=== PATIENT | male | born 1935 | race Caucasian/White ===

== ENCOUNTER 2016-10-12 17:23 | Emergency (ER) | payer MEDICARE ==
[~2016-10-12] VITALS: Ht 185.4 cm; Wt 88.0 kg
[2016-10-12 17:27] VITALS: BP 117/59; PULSE 60; RESP 16; TEMP 98.1; O2SAT 94
[2016-10-12] MEDS ORDERED: SIMV40TA PO (17:43)
[2016-10-12] MEDS ORDERED: TAMS0.4C4 PO (17:43)
[2016-10-12] MEDS ORDERED: ASPI81CH CHEW (17:43)
[2016-10-12] MEDS ORDERED: NIAC500T5 PO (17:43)
[2016-10-12] MEDS ORDERED: OMEP20TA PO (17:43)
[2016-10-12] MEDS ORDERED: PLAV75TA29 PO (17:43)
[2016-10-12] MEDS ORDERED: ATEN50TA PO (17:44)
[2016-10-12] MEDS ORDERED: MULT-116 PO (17:44)
--- NOTE | 2016-10-12 18:09 | PD ---
HPI Chief Complaint: Laceration/Skin Injury Time Seen by Provider: 18:09 Travel History International Travel<30 days: No Contact w/Intl Traveler<30days: No Traveled to known affect area: No History of Present Illness HPI 80-year-old male with PMH of HTN, HLD, GERD, CAD S/P stenting (2000) on Plavix, presents to the ED for evaluation of laceration of the right foot. Sustained at approximately noon today while the patient was wading in the river. Patient states that his daughter cleaned the wound with "wound wash and peroxide" before applying a dressing. However, when the patient stood up there was a lot of blood which prompted them to seek treatment at the ED. Patient states that his feet are chronically numb. He denies history of diabetes. Takes no daily medications, NKDA. 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) Social History Alcohol Use: Yes (daily) Tobacco Use: No Substance Use: No Allergies-Medications (Allergen,Severity, Reaction): Coded Allergies: No Known Allergies (Unverified , 10/12/16) Reported Meds & Prescriptions Reported Meds & Active Scripts Active Cipro (Ciprofloxacin HCl) 500 Mg Tab 500 Mg PO BID 3 Days Reported Alfonso Mag Zinc + D3 (Multiple Vitamins W/ Minerals) 1 Tab 1 Tab PO DAILY Atenolol 50 Mg Tab 50 Mg PO DAILY Aspirin 81 Mg Chew 81 Mg CHEW DAILY Plavix (Clopidogrel Bisulfate) 75 Mg Tab 75 Mg PO DAILY Omeprazole 20 Mg Tab 20 Mg PO DAILY Niacin 500 Mg Tab 500 Mg PO DAILY Simvastatin 40 Mg Tab 40 Mg PO HS Tamsulosin (Tamsulosin HCl) 0.4 Mg Cap 0.4 Mg PO HS Review of Systems Except as stated in HPI: all other systems reviewed are Neg Physical Exam Narrative GENERAL: Well-nourished, well-developed hard of hearing elderly white male in no acute distress. SKIN: Focused skin assessment warm/dry. There is a 1.5 cm laceration on the plantar aspect of the right foot just proximal to the MP joint of the great toe. There is a approximate 1 cm laceration slightly distal and medial to this. There is a 1 cm laceration on the medial aspect of the right great toe. There are several smaller, more superficial wounds scattered across the distal third of the plantar aspect of the foot. No visible foreign body or active bleeding. HEAD: Normocephalic. EYES: No scleral icterus. No injection or drainage. NECK: Supple, trachea midline. No JVD or lymphadenopathy. CARDIOVASCULAR: Regular rate and rhythm without murmurs, gallops, or rubs. RESPIRATORY: Breath sounds equal bilaterally. No accessory muscle use. GASTROINTESTINAL: Abdomen soft, non-tender, nondistended. MUSCULOSKELETAL: No cyanosis, or edema. Focused right lower extremity exam: 2+ radial pulse. Patient is able to flex and extend the toes and ankle. Sensation diminished, chronic according to the patient. BACK: Nontender without obvious deformity. No CVA tenderness. Data Data Last Documented VS Vital Signs Date Time Temp Pulse Resp B/P Pulse Ox O2 Delivery O2 Flow Rate FiO2 10/12/16 17:27 98.1 60 16 117/59 94 Orders Foot, Limited (2vws) (10/12/16 18:12) Ice/Cold Pack (10/12/16 18:12) Tetanus/Diphtheria Tox Adult (Tetanus/Di (10/12/16 18:15) Lidocaine 1% Inj (50 Ml) (Xylocaine 1% I (10/12/16 18:15) Foot, Limited (2vws) (10/12/16 19:50) Ciprofloxacin (Cipro) (10/12/16 20:45) Post Op Boot (Shoe) (10/12/16 ) MDM Medical Decision Making Medical Screen Exam Complete: Yes Emergency Medical Condition: Yes Differential Diagnosis Abrasion versus laceration versus foreign body versus other Narrative Course 80-year-old male with PMH of HTN, HLD, GERD, CAD S/P stenting (2000) on Plavix, presents to the ED for evaluation of laceration of the right foot. Sustained at approximately noon today while the patient was wading in the river. Patient states that his daughter cleaned the wound with "wound wash and peroxide" before applying a dressing. However, when the patient stood up there was a lot of blood which prompted them to seek treatment at the ED. Patient states that his feet are chronically numb. He denies history of diabetes. Vitals reviewed. Physical exam reveals a hard of hearing, pleasant white male in no acute distress. Focused RLE exam reveals a 1.5 cm laceration on the plantar aspect of the right foot just proximal to the MP joint of the great toe. There is an approximate 1 cm laceration slightly distal and medial to this. There is a 1 cm laceration on the medial aspect of the right great toe. There are several smaller, more superficial wounds scattered across the distal third of the plantar aspect of the foot. No visible foreign body or active bleeding. 2 + radial pulse. Patient is able to flex and extend the toes and ankle. Sensation diminished, chronic according to the patient. Tetanus immunization was updated. X-rays revealed radiopaque foreign bodies in the foot. The foot was irrigated with 1.5 L normal saline. Second x-ray reveals one remaining foreign body. I explored the more medial and distal wound with a pair of forceps and removed a small piece of seashell. The wound was irrigated a second time. Laceration repair was performed. Please see my procedure note for details. Patient was prescribed Cipro twice a day 3 days. First dose administered in the ED. A dressing and postop shoe was applied. He is instructed to discontinue taking his simvastatin for the next 3 days, keep the wound clean, dry, covered, utilize OTC medications as needed for pain, return to the ED for wound evaluation in 72 hours. The patient and his daughter indicated understanding of the instructions and are agreeable to the care plan. The patient is stable and discharged home. Procedures Procedure Narrative LACERATION LOCATION: Plantar aspect right foot, just proximal to the MP joint of the great toe. LENGTH: 1.5 cm NUMBER OF STITCHES/DAYRON: 1 REPAIR: The area of the laceration was prepped with Betadine and sterilely draped. The laceration was infiltrated with 1 cc of 1% lidocaine. The wound was copiously irrigated and explored without evidence of foreign body, tendon injury or neurovascular injury. The wound was closed using 4-0 Prolene. This was a single layer repair. A sterile dressing and postop shoe was applied. The patient was advised to keep the dressing clean and dry. Patient tolerated the procedure well. Diagnosis Primary Impression: Laceration of right foot with foreign body Qualified Code: S91.321A - Laceration of right foot with foreign body, initial encounter Referrals: Primary Care Physician Patient Instructions: Care For Your Stitches (ED), General Instructions, Puncture Wound (ED) Additional Instructions: Rest, ice, elevate the extremity. Apply ice no longer than 10-15 minutes per hour a few times a day. [id number] medications as needed for pain. Keep the wounds clean, dry and covered. Change the dressing anytime it becomes soiled or wet. Wash hands before and after touching the wound. Cipro 500 mg twice a day as prescribed. DO NOT TAKE SIMVASTATIN WHILE YOU ARE TAKING CIPRO. RETURN TO THE ED IN 72 HOURS FOR WOUND CHECK. Med/Other Pt SpecificInfo: Prescription(s) given Scripts Ciprofloxacin (Cipro)500 Mg [id number] Mg PO BID 3 Days Ref 0 Prov:Sarwat Celeste MD 10/12/16 Disposition: 01 DISCHARGE HOME Condition: Stable Kimberley Quezada Oct 12, 2016 18:09
[2016-10-12] MEDS ORDERED: TETANUS/DIPHTHERIA TOXOID ADULT 0.5 ML VIAL IM ONE (18:15)
[2016-10-12] MEDS ORDERED: LIDOCAINE HCL 1% 50 ML VIAL INFIL ONE (18:15)
--- NOTE | 2016-10-12 18:54 | RADHPO ---
EXAM DATE/TIME: 10/12/2016 18:16 [facility] COMPARISON: No previous studies available for comparison. INDICATIONS : Right foot pain after stepping on a shell, possible foreign body. MEDICAL HISTORY : None. SURGICAL HISTORY : None. ENCOUNTER: Initial ACUITY: 1 day PAIN SCORE: 8/10 LOCATION: Right foot, plantar surface FINDINGS: There are faint areas of increased density on the plantar surface of the foot, probably mildly right radio-opaque foreign bodies. No acute bony abnormality. Mild degenerative change. CONCLUSION: 1. Faint areas of increased density on the plantar aspect of the forefoot, probably mildly radiopaque foreign bodies. Gabriel Schaffer MD on October 12, 2016 at 18:51 Board Certified Radiologist. This report was verified electronically.
[2016-10-12] MEDS ORDERED: CIPR-9 PO (20:34)
--- NOTE | 2016-10-12 20:36 | RADHPO ---
EXAM DATE/TIME: 10/12/2016 20:09 [facility] COMPARISON: No previous studies available for comparison. INDICATIONS : Evaluate right foot after foreign body removal. MEDICAL HISTORY : None. SURGICAL HISTORY : None. ENCOUNTER: Initial ACUITY: 1 day PAIN SCORE: 3/10 LOCATION: Right foot, plantar surface FINDINGS: Two view examination of the right foot demonstrates removal of the foreign body along the posterior a spect of the forefoot laceration. There does appear to be some residual mildly radiopaque foreign bod ies along the anterior aspect of the injury, best seen on the lateral view. CONCLUSION: 1. Partial removal of radiopaque foreign bodies as above. Gabriel Schaffer MD on October 12, 2016 at 20:32 Board Certified Radiologist. This report was verified electronically.
[2016-10-12] MEDS ORDERED: CIPROFLOXACIN 500 MG TAB PO ONE (20:45)
== END 2016-10-12 21:19 | disposition home or self-care (01) ==
LOC: PHEFT 17:23
DX: S91.321A Laceration with foreign body, right foot, initial encounter (principal); E78.5 Hyperlipidemia, unspecified; I10 Essential (primary) hypertension; W45.8XXA Other foreign body or object entering through skin, initial encounter; Y93.01 Activity, walking, marching and hiking; Y92.828 Other wilderness area as the place of occurrence of the external cause; Z79.01 Long term (current) use of anticoagulants; Z23 Encounter for immunization
CPT/HCPCS: 12001; 73620; 90471; 90714; 99283; L3260

== ENCOUNTER 2016-10-15 12:24 | Emergency (ER) | payer MEDICARE ==
[~2016-10-15] VITALS: Ht 185.4 cm; Wt 88.7 kg
[~2016-10-15 12:24] MED LIST: ASPI81CH CHEW; ATEN50TA PO; CIPR-9 PO; MULT-116 PO; NIAC500T5 PO; OMEP20TA PO; PLAV75TA29 PO; SIMV40TA PO; TAMS0.4C4 PO
[2016-10-15 12:33] VITALS: BP 118/67; PULSE 58; RESP 16; TEMP 97.5; O2SAT 95
--- NOTE | 2016-10-15 12:38 | PD ---
HPI Chief Complaint: Wound/Suture/Staple Re-Check Time Seen by Provider: 12:37 Travel History International Travel<30 days: No Contact w/Intl Traveler<30days: No Traveled to known affect area: No History of Present Illness HPI 80-year-old male to presents to the ED for evaluation and recheck. Patient was seen here about 3 days ago for evaluation of laceration he sustained to his right foot [place] was on a river. Patient was found to have a piece of shell that was removed and had one stitch put in place. Patient was started on Cipro. Per patient he states that for the most part all the symptoms seem to be improving. Per patient his been compliant with antibiotic given to him. He denies any fevers chills or sweats. No new erythema or signs of infection. He is a diabetic and he does have chronic numbness on that foot which is chronic for him. He denies any other medical problem. He states compliance with wound care as well as using postop shoe. No allergies to medication. No pain. 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) Social History Alcohol Use: Yes (daily) Tobacco Use: No Substance Use: No Allergies-Medications (Allergen,Severity, Reaction): Coded Allergies: No Known Allergies (Unverified , 10/15/16) Reported Meds & Prescriptions Reported Meds & Active Scripts Active Cipro (Ciprofloxacin HCl) 500 Mg Tab 500 Mg PO BID 3 Days Reported Alfonso Mag Zinc + D3 (Multiple Vitamins W/ Minerals) 1 Tab 1 Tab PO DAILY Atenolol 50 Mg Tab 50 Mg PO DAILY Aspirin 81 Mg Chew 81 Mg CHEW DAILY Plavix (Clopidogrel Bisulfate) 75 Mg Tab 75 Mg PO DAILY Omeprazole 20 Mg Tab 20 Mg PO DAILY Niacin 500 Mg Tab 500 Mg PO DAILY Simvastatin 40 Mg Tab 40 Mg PO HS Tamsulosin (Tamsulosin HCl) 0.4 Mg Cap 0.4 Mg PO HS Review of Systems Except as stated in HPI: all other systems reviewed are Neg Physical Exam Narrative GENERAL: SKIN: Warm and dry. Patient has a healing about once admitted laceration on the plantar aspect of the right foot around the MIP area. Patient has one suture in the area. No sign of purulence, mass or deformity coming from the wound itself. Not warm to touch. No erythema noted. Good capillary refill of all of the toes. Wound appears to be healing. HEAD: Atraumatic. Normocephalic. EYES: Pupils equal and round. No scleral icterus. No injection or drainage. ENT: No nasal bleeding or discharge. Mucous membranes pink and moist. NECK: Trachea midline. No JVD. CARDIOVASCULAR: Regular rate and rhythm. RESPIRATORY: No accessory muscle use. Clear to auscultation. Breath sounds equal bilaterally. GASTROINTESTINAL: Abdomen soft, non-tender, nondistended. Hepatic and splenic margins not palpable. MUSCULOSKELETAL: Extremities without clubbing, cyanosis, or edema. No obvious deformities. NEUROLOGICAL: Awake and alert. No obvious cranial nerve deficits. Motor grossly within normal limits. Five out of 5 muscle strength in the arms and legs. Normal speech. PSYCHIATRIC: Appropriate mood and affect; insight and judgment normal. Data Data Last Documented VS Vital Signs Date Time Temp Pulse Resp B/P Pulse Ox O2 Delivery O2 Flow Rate FiO2 10/15/16 12:33 97.5 58 16 118/67 95 MDM Medical Decision Making Medical Screen Exam Complete: Yes Emergency Medical Condition: Yes Medical Record Reviewed: Yes Differential Diagnosis Wound recheck versus wound infection versus normal exam Narrative Course 80-year-old male that presents to the ED for evaluation of wound recheck. Patient was properly examined and was found to have signs and symptoms consistent with wound recheck. No sign of acute infection at this time. Patient is compliant with wound care and medications. For the most part does not appear to be infected. Patient is a diabetic and that sustained a foreign body to his foot that had to be removed. Patient also was in regular water when this happened. At this time and will give patient a refill of the Cipro to use only if signs of infection develop and instructions that if any symptoms of infection develop he needs to come back to the ED. He is not to fill this medication unless he develops infection and he agrees and understands. Otherwise he needs to get the sutures removed in 10 days. See ED worsening symptoms. Follow up with PCP. Wound care was endorsed. Diagnosis Primary Impression: Encounter for wound re-check Patient Instructions: General Instructions Additional Instructions: Wound care daily with soap and water. You can apply bandaid if needed. Neosporyn or OTC antibiotic ointment to area as needed twice a day for at least 2 weeks to help with scarring and prevent infection. Meoderma OTC for scarring if needed. Avoid sun exposure for 2 months as the sun could make scar darker and more noticeable. Get sutures removed in 10 days. See ED if worst. Only take antibiotic if foot appears to be infected, increased redness, pus, pain. Otherwise do not take. See PCP or ED if it is getting infected. Med/Other Pt SpecificInfo: No Change to Meds Scripts Ciprofloxacin (Cipro)500 Mg Rew348 Mg PO BID 7 Days Prov:Lavelle Lovell MD 10/15/16 Disposition: 01 DISCHARGE HOME Condition: Lorenzo Quinones Oct 15, 2016 12:38
[2016-10-15] MEDS ORDERED: CIPR-9 PO (12:43)
== END 2016-10-15 13:02 | disposition home or self-care (01) ==
LOC: PHEFT 12:24
DX: Z51.89 Encounter for other specified aftercare (principal); I25.10 Atherosclerotic heart disease of native coronary artery without angina pectoris; I10 Essential (primary) hypertension; K21.9 Gastro-esophageal reflux disease without esophagitis; Z79.01 Long term (current) use of anticoagulants
CPT/HCPCS: 99281